=== PATIENT | male | born 1970 | race Caucasian/White ===

== ENCOUNTER 2019-03-30 09:05 | Day surgery (SDC) | payer BC ==
[~2019-03-30] VITALS: Ht 165.1 cm; Wt 79.4 kg
[~2019-03-30 09:05] MED LIST: CEFAZOLIN SOD 2 GM in D5W 50 ML IV ONE
[2019-03-30] MEDS ORDERED: MIDAZOLAM HCL 5 MG/5 ML VIAL IVP ONE (10:46)
[2019-03-30] MEDS ORDERED: ROCURONIUM BROMIDE 10 MG/ML (ZEMURON) IV ONE (10:46)
[2019-03-30] MEDS ORDERED: fentaNYL CITRATE 250 MCG/5 ML AMP IV ONE (10:46)
[2019-03-30] MEDS ORDERED: LR 1,000 ML IV.SOLN IV ONE (10:46)
[2019-03-30] MEDS ORDERED: NS IRRIG SOLN 1000 ML IR ONE (10:46)
[2019-03-30] MEDS ORDERED: BUPIVACAINE /EPINEPHRINE/PF 0.25% 30 ML VIAL INJ ONE (10:46)
[2019-03-30] MEDS ORDERED: SEVOFLURANE 15 MIN GAS INH ONE (10:46)
[2019-03-30] MEDS ORDERED: ONDANSETRON HCL 4 MG/2 ML VIAL IVP ONE (10:46)
[2019-03-30] MEDS ORDERED: KETOROLAC TROMETHAMINE 30 MG VIAL IVP ONE (10:46)
[2019-03-30] MEDS ORDERED: KETOROLAC TROMETHAMINE 30 MG VIAL IVP PRN (11:00)
[2019-03-30] MEDS ORDERED: fentaNYL CITRATE/PF 100 MCG/2 ML AMP IVP PRN ×2 (11:00)
[2019-03-30] MEDS ORDERED: ONDANSETRON HCL 4 MG/2 ML VIAL IVP PRN (11:00)
[2019-03-30] MEDS ORDERED: POLYMYXIN 500,000/BACIT.10,000 UNITS in NS IRR 1 L IR ONE (11:46)
[2019-03-30] MEDS ORDERED: HYDROcodone/ACETAMIN 5-325 MG TAB (NORCO/ VICODIN) PO PRN (13:15)
[2019-03-30] MEDS ORDERED: LR 500 ML IV ONE (13:15)
[2019-03-30] MEDS ORDERED: fentaNYL CITRATE/PF 100 MCG/2 ML AMP ONE (13:54)
[2019-03-30 14:19] VITALS: BP_SYST 127
[2019-03-30] MEDS ORDERED: HYDROcodone/ACETAMIN 5-325 MG TAB (NORCO/ VICODIN) ONE (14:30)
== END 2019-03-30 16:00 | disposition home or self-care (01) ==
LOC: SDS 09:05
PROVIDERS: ATTEND Surgery
DX: K40.90 Unilateral inguinal hernia, without obstruction or gangrene, not specified as recurrent (principal); D17.6 Benign lipomatous neoplasm of spermatic cord; Z98.890 Other specified postprocedural states
CPT/HCPCS: 49650; C1727; C1781; J0690; J1885; J2250; J2405; J3010 ×2; J3490; J7060; J7120; S2900